=== PATIENT | male | born 1950 | race Caucasian/White ===

== ENCOUNTER 2019-07-19 09:12 | Outpatient (CLI) | payer MEDICARE ==
[2019-07-19 09:40] LABS: BASOPHILS # (AUTO) 0.1 10^3/uL (0.0-0.1); BASOPHILS % (AUTO) 1.6 %; EOSINOPHILS # (AUTO) 0.3 10^3/uL (0.0-0.7); EOSINOPHILS % (AUTO) 4.5 %; HGB - HEMOGLOBIN 14.2 g/dL (14.0-18.0); LYMPHOCYTES # (AUTO) 2.1 10^3/uL (1.5-3.5); LYMPHOCYTES % (AUTO) 37.4 %; MEAN CORPUSCULAR HEMOGLOBIN 32.2 pg (27.0-31.0); MEAN CORPUSCULAR VOLUME 94.8 fL (80.0-94.0); MEAN PLATELET VOLUME 11.5 fL (7.4-11.4); MONOCYTES # (AUTO) 0.5 10^3/uL (0.0-1.0); MONOCYTES % (AUTO) 9.3 %; NEUTROPHILS # (AUTO) 2.6 10^3/uL (1.5-6.6); NEUTROPHILS % (AUTO) 46.8 %; PLT - PLATELET COUNT 145 10^3/uL (130-450); RED BLOOD COUNT 4.41 10^6/uL (4.70-6.10); RED CELL DISTRIBUTION WIDTH 12.4 % (12.0-15.0); WHITE BLOOD COUNT 5.5 x10^3/uL (4.8-10.8)
[2019-07-19 10:00] LABS: ALBUMIN 4.5 g/dL (3.2-5.5); ALBUMIN/GLOBULIN RATIO 1.5 (1.0-2.2); ALKALINE PHOSPHATASE 38 IU/L (42-121); ALT ALANINE AMINOTRANSFERASE 23 IU/L (10-60); AST ASPARTATE AMINOTRANSFERASE 26 IU/L (10-42); BILIRUBIN,TOTAL 0.8 mg/dL (0.2-1.0); BUN - BLOOD UREA NITROGEN 20 mg/dL (6-20); CARBON DIOXIDE - CO2 29 mmol/L (21-32); CHLORIDE 101 mmol/L (101-111); CHOL/HDL RATIO 3.5 (<5.0); CHOLESTEROL 149 mg/dL; CREATININE 0.8 mg/dL (0.6-1.2); GFR - MDRD 96 (>89); GLUCOSE 136 mg/dL (70-100); HDL CHOLESTEROL 42 mg/dL; LDL CHOLESTEROL,CALCULATED 74 mg/dL; LDL/HDL RATIO 1.8 (<3.6); SODIUM 138 mmol/L (135-145); TOTAL PROTEIN 7.5 g/dL (6.7-8.2); VLDL CHOLESTEROL 33 mg/dL
[2019-07-22 16:10] LABS: HB2 TOTAL 14.8 g/dL; HEMOGLOBIN A1C 0.8 g/dL; HEMOGLOBIN A1C % 7.1 % (4.6-6.2)
== END 2019-07-19 09:13 | disposition home or self-care (01) ==
LOC: LAB 09:12
PROVIDERS: ATTEND Family Medicine
DX: Z12.5 Encounter for screening for malignant neoplasm of prostate (principal); E78.5 Hyperlipidemia, unspecified; M19.90 Unspecified osteoarthritis, unspecified site; E11.42 Type 2 diabetes mellitus with diabetic polyneuropathy
CPT/HCPCS: 36415; 80053; 80061; 83036; 84443; 85025; G0103; 83721; 84153

== ENCOUNTER 2019-09-27 11:55 | Outpatient (CLI) | payer MEDICARE ==
--- NOTE | 2019-09-27 15:10 | XRAY Report ---
Reason: SHOULDER PAIN Procedure Date: 09/27/2019 Accession Number: [id number] / [id number] Procedure: XR - Shoulder 3 View LT CPT Code: Final Report FULL RESULT: EXAM: LEFT SHOULDER RADIOGRAPHY EXAM DATE: 09/27/2019 12:25 PM. CLINICAL HISTORY: SHOULDER PAIN. COMPARISON: None. TECHNIQUE: 3 views. FINDINGS: Bones: Normal. No fracture or bone lesion. Joints: The glenohumeral and acromioclavicular joints are normal. Soft tissues: Small ossicles inferior to the distal clavicle. The visualized hemithorax is unremarkable. No soft tissue swelling. IMPRESSION: Negative left shoulder films without clear findings to explain pain RADIA
== END 2019-09-27 11:56 | disposition home or self-care (01) ==
LOC: DI 11:55
PROVIDERS: ATTEND Family Medicine
DX: M25.512 Pain in left shoulder (principal)

== ENCOUNTER 2019-12-27 08:00 | Outpatient (CLI) | payer MEDICARE ==
[2019-12-27 18:23] LABS: CALCIUM 9.1 mg/dL (8.5-10.3); CREATININE 0.8 mg/dL (0.6-1.2)
[2019-12-27 18:41] LABS: HB2 TOTAL 15.1 g/dL; HEMOGLOBIN A1C 0.98 g/dL; HEMOGLOBIN A1C % 8.1 % (4.6-6.2)
== END 2019-12-27 23:59 | disposition home or self-care (01) ==
LOC: LAB.WCP 08:00
PROVIDERS: ATTEND Family Medicine
DX: E11.42 Type 2 diabetes mellitus with diabetic polyneuropathy (principal)
CPT/HCPCS: 36415; 80048; 83036

== ENCOUNTER 2020-10-02 09:39 | Outpatient (CLI) | payer MEDICARE ==
[2020-10-02 10:22] LABS: BASOPHILS % (AUTO) 0.9 %; EOSINOPHILS # (AUTO) 0.2 10^3/uL (0.0-0.7); EOSINOPHILS % (AUTO) 3.5 %; HCT - HEMATOCRIT 42.6 % (42.0-52.0); HGB - HEMOGLOBIN 14.6 g/dL (14.0-18.0); LYMPHOCYTES # (AUTO) 1.6 10^3/uL (1.5-3.5); LYMPHOCYTES % (AUTO) 36.3 %; MEAN CORPUSCULAR HEMOGLOBIN 32.6 pg (27.0-31.0); MEAN CORPUSCULAR HGB CONC 34.3 g/dL (32.0-36.0); MEAN CORPUSCULAR VOLUME 95.1 fL (80.0-94.0); MEAN PLATELET VOLUME 11.1 fL (7.4-11.4); MONOCYTES # (AUTO) 0.4 10^3/uL (0.0-1.0); MONOCYTES % (AUTO) 8.6 %; NEUTROPHILS # (AUTO) 2.2 10^3/uL (1.5-6.6); NEUTROPHILS % (AUTO) 50.5 %; PLT - PLATELET COUNT 150 10^3/uL (130-450); RED BLOOD COUNT 4.48 10^6/uL (4.70-6.10); WHITE BLOOD COUNT 4.3 x10^3/uL (4.8-10.8)
[2020-10-02 10:46] LABS: ALBUMIN 4.7 g/dL (3.2-5.5); ALBUMIN/GLOBULIN RATIO 1.6 (1.0-2.2); ALKALINE PHOSPHATASE 43 IU/L (42-121); ALT ALANINE AMINOTRANSFERASE 21 IU/L (10-60); AST ASPARTATE AMINOTRANSFERASE 27 IU/L (10-42); BUN - BLOOD UREA NITROGEN 17 mg/dL (6-20); CALCIUM 9.1 mg/dL (8.5-10.3); CARBON DIOXIDE - CO2 26 mmol/L (21-32); CHLORIDE 99 mmol/L (101-111); CHOL/HDL RATIO 4.2 (<5.0); CHOLESTEROL 161 mg/dL; CREATININE 0.8 mg/dL (0.6-1.2); DIGOXIN 0.8 ng/mL; GFR - MDRD 96 (>89); GLUCOSE 166 mg/dL (70-100); HDL CHOLESTEROL 38 mg/dL; LDL CHOLESTEROL,CALCULATED 88 mg/dL; LDL/HDL RATIO 2.3 (<3.6); POTASSIUM 4.3 mmol/L (3.5-5.0); SODIUM 135 mmol/L (135-145); TOTAL PROTEIN 7.7 g/dL (6.7-8.2); TRIGLYCERIDES 174 mg/dL; VLDL CHOLESTEROL 35 mg/dL
[2020-10-02 10:57] LABS: THYROID STIMULATING HORMONE 1.91 uIU/mL (0.34-5.60)
[2020-10-02 10:58] LABS: CREATININE,URINE 194.1 mg/dL; MICROALBUMIN,URINE 6.8 mg/dL (0-300.0)
[2020-10-02 12:53] LABS: ESTIMATED AVERAGE GLUCOSE 157 mg/dL (70-100); HEMOGLOBIN A1c% 7.1 % (4.27-6.07)
== END 2020-10-02 09:40 | disposition home or self-care (01) ==
LOC: LAB 09:39
PROVIDERS: ATTEND Family Medicine
DX: G60.9 Hereditary and idiopathic neuropathy, unspecified (principal); G89.29 Other chronic pain; I48.91 Unspecified atrial fibrillation; E78.5 Hyperlipidemia, unspecified; E11.9 Type 2 diabetes mellitus without complications; G62.9 Polyneuropathy, unspecified; Z79.899 Other long term (current) drug therapy
CPT/HCPCS: 36415; 80053; 80061; 80162; 82043; 82570; 83036; 83721; 84443; 85025

== ENCOUNTER 2020-12-23 16:03 | Outpatient (CLI) | payer MEDICARE ==
--- NOTE | 2020-12-23 17:26 | XRAY Report ---
PROCEDURE: Finger(s) RT INDICATIONS: FINGER PAIN, RIGHT TECHNIQUE: AP hand, 2 views of the second finger(s) acquired. COMPARISON: None FINDINGS: Bones: No fractures or dislocations. No suspicious bony lesions. Age-appropriate generalized degen erative changes are seen. Soft tissues: Soft tissue swelling is seen of the second finger. IMPRESSION: Soft tissue swelling is seen of the second finger, without an underlying bony abnormality. Reviewed by: Lee Escalona MD on 12/23/2020 4:25 PM MAXIMILIAN Approved by: Lee Escalona MD on 12/23/2020 4:25 PM MAXIMILIAN Station ID: [id number]
== END 2020-12-23 23:59 | disposition home or self-care (01) ==
LOC: DI.N 16:03
PROVIDERS: ATTEND Family Medicine
DX: M79.9 Soft tissue disorder, unspecified (principal)

== ENCOUNTER 2021-04-02 08:30 | Outpatient (CLI) | payer MEDICARE ==
[2021-04-02 09:07] LABS: CREATININE,URINE 208.4 mg/dL; MICROALBUM/CREATININE RATIO,UR 20.6 ug/mg (<30.0); MICROALBUMIN,URINE 4.3 mg/dL (0-300.0)
[2021-04-02 09:10] LABS: CALCIUM 9.2 mg/dL (8.5-10.3); CREATININE 0.8 mg/dL (0.6-1.2)
[2021-04-02 09:11] LABS: POTASSIUM 4.7 mmol/L (3.5-5.0)
[2021-04-02 11:51] LABS: ESTIMATED AVERAGE GLUCOSE 148 mg/dL (70-100); HEMOGLOBIN A1c% 6.8 % (4.27-6.07)
== END 2021-04-02 08:31 | disposition home or self-care (01) ==
LOC: LAB 08:30
PROVIDERS: ATTEND Family Medicine
DX: I10 Essential (primary) hypertension (principal); G60.9 Hereditary and idiopathic neuropathy, unspecified; I48.91 Unspecified atrial fibrillation; E11.9 Type 2 diabetes mellitus without complications; G62.9 Polyneuropathy, unspecified
CPT/HCPCS: 36415; 80048; 82043; 82570; 83036

== ENCOUNTER 2021-05-24 10:25 | Day surgery (SDC) | payer MEDICARE ==
[2021-05-24] MEDS ORDERED: LACTATED RINGERS 1,000 ML IV ONE (10:51)
--- NOTE | 2021-05-24 11:13 | ANESTHESIA ---
Pre-Anesthesia VS, & Labs Height: 6 ft 2 in Weight (kg): 93.3 kg Body Mass Index: 26.4 BMI Classification: Overweight - NPO >8 hours - Lab Results Lab results reviewed: Yes <Medhat Sales - Last Filed: 05/24/21 10:57> - Diagnosis hx colon polyps (Medhat Sales) - Procedure colonoscopy (Medhat Sales) Vital Signs: Temp Pulse Resp BP Pulse Ox 36.3 C L 83 10 L 123/82 H 95 05/24/21 10:52 05/24/21 10:52 05/24/21 10:52 05/24/21 10:52 05/24/21 10:52 - Lab Results Current Lab Results: Laboratory Tests 05/24/21 11:07: POC Whole Bld Glucose 136 H Home Medications and Allergies <Medhat Sales - Last Filed: 05/24/21 10:57> <Barbara Anderson - Last Filed: 05/24/21 11:23> Home Medications: Ambulatory Orders Apixaban [Eliquis] 5 mg PO BID 05/23/21 Digoxin [Lanoxin] 0.25 mcg PO DAILY 05/23/21 Gabapentin [Neurontin] 600 mg PO TID 05/23/21 Pravastatin [Pravachol] 40 mg PO DAILY 05/23/21 Ramipril [Altace] 2.5 mg PO DAILY 05/23/21 dilTIAZem HCL [Diltiazem 24Hr ER (Xr)] 180 mg PO DAILY 05/23/21 metFORMIN [Glucophage] 1,000 mg PO DAILY 05/23/21 oxyCODONE/ACET 5/325 [Percocet 5 mg/325 mg] 1 - 2 tab PO Q4-6H 05/23/21 Apixaban [Eliquis] 5 mg PO BID 05/23/21 Digoxin [Lanoxin] 0.25 mcg PO DAILY 05/23/21 Gabapentin [Neurontin] 600 mg PO TID 05/23/21 Pravastatin [Pravachol] 40 mg PO DAILY 05/23/21 Ramipril [Altace] 2.5 mg PO DAILY 05/23/21 dilTIAZem HCL [Diltiazem 24Hr ER (Xr)] 180 mg PO DAILY 05/23/21 metFORMIN [Glucophage] 1,000 mg PO DAILY 05/23/21 oxyCODONE/ACET 5/325 [Percocet 5 mg/325 mg] 1 - 2 tab PO Q4-6H 05/23/21 Allergies/Adverse Reactions: Allergies Allergy/AdvReac Type Severity Reaction Status Date / Time No Known Drug Allergies Allergy Verified 05/23/21 11:27 Anes History & Medical History - Anesthetic History Anesthesia Complications: reports: No previous complications Family history of Anesthesia Complications: Denies Family history of Malignant Hyperthermia: Denies - Medical History Cardiovascular: reports: Atrial fibrillation Pulmonary: reports: None Gastrointestinal: reports: None Urinary: reports: None Musculoskeletal: reports: None Endocrine/Autoimmune: reports: Type 2 diabetes Skin: reports: None - Surgical History Urologic: reports: Prostatic surgery Orthopedic: reports: Spine surgery, Other <Medhat Sales P - Last Filed: 05/24/21 10:57> Exam General: Alert, Oriented x3, Cooperative <Medhat Sales P - Last Filed: 05/24/21 10:57> Dental: WNL Mouth Openin Fingerbreadth Neck Mobility: Normal Mallampati classification: II Thyromental Distance: 4-6 cm Respiratory: Lungs clear, Normal breath sounds, No respiratory distress Cardiovascular: Other (AF) Neurological: Normal speech Mental/Cognitive Status: Alert/Oriented X3, Normal for patient Cognitive Status: Within normal limits <Barbara Anderson E - Last Filed: 05/24/21 11:23> Plan Anesthesia Type: Total IV Consent for Procedure(s) Verified and Reviewed: Yes Code Status: Attempt Resuscitation ASA classification: 3-Severe systemic disease Is this case an emergency?: No <Medhat Sales P - Last Filed: 05/24/21 10:57>
[2021-05-24] MEDS ORDERED: MIDAZOLAM 2 MG/2 ML VIAL ONE (11:17)
[2021-05-24] MEDS ORDERED: PROPOFOL 200 MG/20 ML VIAL IVP ONE ×2 (11:18→11:20)
[2021-05-24] MEDS ORDERED: fentaNYL 100 MCG/2 ML VIAL ONE (11:18)
--- NOTE | 2021-05-24 11:24 | HISTORY & PHYSICAL EXAMINATION ---
Chief Complaint - Chief Complaint Chief Complaint: history colon polyps History of Present Illness - History Obtained From Records Reviewed: yes History obtained from: pt Exam Limitations: none - History of Present Illness HPI Comment/Other: Here for colon cancer surveillance History - Past Medical History Cardiovascular: reports: Atrial fibrillation Respiratory: reports: None Endocrine/Autoimmune: reports: Type 2 diabetes GI: reports: None : reports: None HEENT: reports: None Psych: reports: None Musculoskeletal: reports: None Derm: reports: None MRSA Hx?: No - Past Surgical History Ortho: reports: Spine surgery, Other Meds/Allgy - Home Medications Home Medications: Ambulatory Orders Medication Instructions Recorded Confirmed Apixaban [Eliquis] 5 mg PO BID 05/23/21 05/24/21 Digoxin [Lanoxin] 0.25 mcg PO DAILY 05/23/21 05/24/21 Gabapentin [Neurontin] 600 mg PO TID 05/23/21 05/24/21 Pravastatin [Pravachol] 40 mg PO DAILY 05/23/21 05/24/21 Ramipril [Altace] 2.5 mg PO DAILY 05/23/21 05/24/21 dilTIAZem HCL [Diltiazem 24Hr ER 180 mg PO DAILY 05/23/21 05/24/21 (Xr)] metFORMIN [Glucophage] 1,000 mg PO DAILY 05/23/21 05/24/21 oxyCODONE/ACET 5/325 [Percocet 5 1 - 2 tab PO Q4-6H 05/23/21 05/24/21 mg/325 mg] - Allergies Allergies/Adverse Reactions: Allergies Allergy/AdvReac Type Severity Reaction Status Date / Time No Known Drug Allergies Allergy Verified 05/23/21 11:27 Review of Systems - Other Findings Other Findings: 10 pt ros as above otherwise unremarkable Exam - Vital Signs Reviewed Vital Signs: Yes Vital Signs: Vital Signs x48h Temp Pulse Resp BP Pulse Ox 05/24/21 10:52 36.3 C L 83 10 L 123/82 H 95 - Physical Exam General Appearance: positive: No acute distress, Alert Eyes Bilateral: positive: PERRL, EOMI ENT: positive: No signs of dehydration Neck: positive: No JVD Respiratory: positive: No respiratory distress, Breath sounds nml Cardiovascular: positive: Irregularly irregular Abdomen: positive: Non-tender, No distention Neurologic/Psychiatric: positive: Oriented x3 Conclusion/Plan - Problem List (1) History of adenomatous polyp of colon Conclusion/Plan: plan surveillance colonoscopy. parq held and consent obtained - Lab Results Lab results reviewed: Yes
[2021-05-24] MEDS ORDERED: LACTATED RINGERS 500 ML IV ONE (12:05)
[2021-05-24 12:32] VITALS: BP 114/66
--- NOTE | 2021-05-24 14:06 | ANESTHESIA POST OP EVALUATION ---
Anesthesia Post Eval - Post Anesthesia Eval Vitals: Last Vital Signs Temp 36.4 C L 05/24/21 12:31 Pulse 74 05/24/21 12:31 Resp 16 05/24/21 12:31 BP 114/66 05/24/21 12:31 Pulse Ox 99 05/24/21 12:31 CV Function Including HR & BP: Stable Pain Control: Satisfactory Nausea & Vomiting: Negative Mental Status: Baseline Respiratory Status: Airway Patent Hydration Status: Satisfactory Anesthesia Complications: None
== END 2021-05-24 10:26 | disposition home or self-care (01) ==
LOC: SDS 10:25
PROVIDERS: ATTEND Surgery
PROC: 0DBL8ZZ Excision of Transverse Colon, Via Natural or Artificial Opening Endoscopic (ICD-10-PCS; principal; 2021-05-24 11:30)
DX: Z12.11 Encounter for screening for malignant neoplasm of colon (principal); D12.3 Benign neoplasm of transverse colon; K57.30 Diverticulosis of large intestine without perforation or abscess without bleeding; G89.29 Other chronic pain; I48.91 Unspecified atrial fibrillation
CPT/HCPCS: 45380; J7120

== ENCOUNTER 2021-09-20 08:44 | Outpatient (CLI) | payer MEDICARE ==
[2021-09-20 09:16] LABS: BASOPHILS # (AUTO) 0.1 10^3/uL (0.0-0.1); EOSINOPHILS # (AUTO) 0.2 10^3/uL (0.0-0.7); EOSINOPHILS % (AUTO) 3.4 %; HCT - HEMATOCRIT 44.4 % (42.0-52.0); HGB - HEMOGLOBIN 15.5 g/dL (14.0-18.0); LYMPHOCYTES # (AUTO) 1.6 10^3/uL (1.5-3.5); LYMPHOCYTES % (AUTO) 32.3 %; MEAN CORPUSCULAR HEMOGLOBIN 33.3 pg (27.0-31.0); MEAN CORPUSCULAR HGB CONC 34.9 g/dL (32.0-36.0); MEAN CORPUSCULAR VOLUME 95.3 fL (80.0-94.0); MEAN PLATELET VOLUME 11.5 fL (7.4-11.4); MONOCYTES # (AUTO) 0.5 10^3/uL (0.0-1.0); MONOCYTES % (AUTO) 9.5 %; NEUTROPHILS # (AUTO) 2.6 10^3/uL (1.5-6.6); NEUTROPHILS % (AUTO) 53.6 %; PLT - PLATELET COUNT 142 10^3/uL (130-450); RED BLOOD COUNT 4.66 10^6/uL (4.70-6.10); RED CELL DISTRIBUTION WIDTH 12.2 % (12.0-15.0); WHITE BLOOD COUNT 4.9 x10^3/uL (4.8-10.8)
[2021-09-20 09:33] LABS: ALBUMIN 4.5 g/dL (3.2-5.5); ALBUMIN/GLOBULIN RATIO 1.6 (1.0-2.2); ALKALINE PHOSPHATASE 42 IU/L (42-121); ALT ALANINE AMINOTRANSFERASE 18 IU/L (10-60); AST ASPARTATE AMINOTRANSFERASE 20 IU/L (10-42); BILIRUBIN,TOTAL 0.8 mg/dL (0.2-1.0); BUN - BLOOD UREA NITROGEN 16 mg/dL (6-20); CARBON DIOXIDE - CO2 29 mmol/L (21-32); CHLORIDE 100 mmol/L (101-111); CHOL/HDL RATIO 4.5 (<5.0); CHOLESTEROL 181 mg/dL; CREATININE 0.8 mg/dL (0.6-1.2); GFR - MDRD 96 (>89); GLUCOSE 177 mg/dL (70-100); HDL CHOLESTEROL 40 mg/dL; LDL CHOLESTEROL,CALCULATED 91 mg/dL; LDL/HDL RATIO 2.3 (<3.6); POTASSIUM 4.4 mmol/L (3.5-5.0); SODIUM 138 mmol/L (135-145); TOTAL PROTEIN 7.3 g/dL (6.7-8.2); TRIGLYCERIDES 250 mg/dL; VLDL CHOLESTEROL 50 mg/dL
[2021-09-20 09:44] LABS: THYROID STIMULATING HORMONE 3.26 uIU/mL (0.34-5.60)
[2021-09-20 09:47] LABS: CREATININE,URINE 216.9 mg/dL; MICROALBUM/CREATININE RATIO,UR 27.2 ug/mg (<30.0); MICROALBUMIN,URINE 5.9 mg/dL (0-300.0)
[2021-09-20 10:17] LABS: ESTIMATED AVERAGE GLUCOSE 166 mg/dL (70-100); HEMOGLOBIN A1c% 7.4 % (4.27-6.07)
== END 2021-09-20 08:45 | disposition home or self-care (01) ==
LOC: LAB 08:44
PROVIDERS: ATTEND Family Medicine
DX: I10 Essential (primary) hypertension (principal); G89.29 Other chronic pain; I48.91 Unspecified atrial fibrillation; E78.5 Hyperlipidemia, unspecified; E11.9 Type 2 diabetes mellitus without complications; G62.9 Polyneuropathy, unspecified; Z79.891 Long term (current) use of opiate analgesic
CPT/HCPCS: 36415; 80053; 80061; 82043; 82570; 83036; 83721; 84443; 85025

== ENCOUNTER 2022-06-25 09:46 | Outpatient (CLI) | payer MEDICARE ==
[2022-06-25 10:01] LABS: BASOPHILS # (AUTO) 0.1 10^3/uL (0.0-0.1); EOSINOPHILS # (AUTO) 0.2 10^3/uL (0.0-0.7); EOSINOPHILS % (AUTO) 3.5 %; HCT - HEMATOCRIT 41.7 % (42.0-52.0); HGB - HEMOGLOBIN 14.1 g/dL (14.0-18.0); LYMPHOCYTES # (AUTO) 1.9 10^3/uL (1.5-3.5); LYMPHOCYTES % (AUTO) 37.7 %; MEAN CORPUSCULAR HEMOGLOBIN 32.3 pg (27.0-31.0); MEAN CORPUSCULAR HGB CONC 33.8 g/dL (32.0-36.0); MEAN CORPUSCULAR VOLUME 95.6 fL (80.0-94.0); MEAN PLATELET VOLUME 11.5 fL (7.4-11.4); MONOCYTES # (AUTO) 0.4 10^3/uL (0.0-1.0); MONOCYTES % (AUTO) 8.2 %; NEUTROPHILS # (AUTO) 2.5 10^3/uL (1.5-6.6); NEUTROPHILS % (AUTO) 49.4 %; PLT - PLATELET COUNT 144 10^3/uL (130-450); RED BLOOD COUNT 4.36 10^6/uL (4.70-6.10); RED CELL DISTRIBUTION WIDTH 12.2 % (12.0-15.0); WHITE BLOOD COUNT 5.1 x10^3/uL (4.8-10.8)
[2022-06-25 10:21] LABS: CREATININE,URINE 167.5 mg/dL; MICROALBUM/CREATININE RATIO,UR 29.9 ug/mg (<30.0)
[2022-06-25 10:26] LABS: ALKALINE PHOSPHATASE 46 IU/L (42-121); ALT ALANINE AMINOTRANSFERASE 22 IU/L (10-60); AST ASPARTATE AMINOTRANSFERASE 22 IU/L (10-42); BILIRUBIN,TOTAL 0.6 mg/dL (0.2-1.0); BUN - BLOOD UREA NITROGEN 22 mg/dL (6-20); CALCIUM 8.8 mg/dL (8.5-10.3); CARBON DIOXIDE - CO2 29 mmol/L (21-32); CHLORIDE 98 mmol/L (101-111); CREATININE 0.8 mg/dL (0.6-1.2); GFR - MDRD 96 (>89); GLUCOSE 288 mg/dL (70-100); POTASSIUM 4.6 mmol/L (3.5-5.0); SODIUM 136 mmol/L (135-145)
[2022-06-25 10:27] LABS: ALBUMIN 4.2 g/dL (3.2-5.5); ALBUMIN/GLOBULIN RATIO 1.3 (1.0-2.2); CHOL/HDL RATIO 4.1 (<5.0); CHOLESTEROL 153 mg/dL; HDL CHOLESTEROL 37 mg/dL; LDL CHOLESTEROL,CALCULATED 65 mg/dL; LDL/HDL RATIO 1.8 (<3.6); TOTAL PROTEIN 7.4 g/dL (6.7-8.2); TRIGLYCERIDES 256 mg/dL; VLDL CHOLESTEROL 51 mg/dL
[2022-06-25 10:36] LABS: THYROID STIMULATING HORMONE 3.77 uIU/mL (0.34-5.60)
[2022-06-25 11:50] LABS: ESTIMATED AVERAGE GLUCOSE 194 mg/dL (70-100); HEMOGLOBIN A1c% 8.4 % (4.27-6.07)
== END 2022-06-25 09:47 | disposition home or self-care (01) ==
LOC: LAB 09:46
PROVIDERS: ATTEND Family Medicine
DX: I10 Essential (primary) hypertension (principal); E11.42 Type 2 diabetes mellitus with diabetic polyneuropathy; I48.91 Unspecified atrial fibrillation; E78.5 Hyperlipidemia, unspecified
CPT/HCPCS: 36415; 80053; 80061; 82043; 82570; 83036; 83721; 84443; 85025

== ENCOUNTER 2023-03-21 18:35 | Emergency (ER) | payer MEDICARE ==
[2023-03-21 18:47] VITALS: BP 150/90; O2SAT 97
--- NOTE | 2023-03-21 19:05 | XRAY Report ---
PROCEDURE: Ankle 3 View RT INDICATIONS: ankle inj TECHNIQUE: 3 views of the ankle were acquired. COMPARISON: None. FINDINGS: Bones: No fractures or dislocations. Ankle mortise is normally aligned. No suspicious bony lesions . Soft tissues: No tibiotalar joint effusion. Achilles tendon appears normal. IMPRESSION: No acute bony abnormality. If there remains a high clinical concern for fracture, consider cross-sect ional imaging now. If pain persists, consider repeat x-ray in 10-14 days or cross-sectional imaging. Reviewed by: Dayday Mccoy MD on 03/21/2023 7:03 PM PDT Approved by: Dayday Mccoy MD on 03/21/2023 7:03 PM PDT Station ID: [id number]
--- NOTE | 2023-03-21 19:51 | ED Physician Documentation ---
PD HPI LOWER EXT INJURY - Stated complaint Stated Complaint: RT ANKLE PX - Chief complaint Chief Complaint: Ext Problem - History obtained from History obtained from: Patient - History of Present Illness PD HPI LOW EXT INJURY LOCATION: Right (In 1988 he ruptured his Achilles tendon on the left and did require surgery. Today he was putting his boat on the trailer and twisted wrong and planted his foot and feels like he popped his right Achilles.) PD PAST MEDICAL HISTORY - Past Medical History Past Medical History: Yes Cardiovascular: Atrial fibrillation Respiratory: None Endocrine/Autoimmune: Type 2 diabetes GI: None : None HEENT: None Psych: None Musculoskeletal: None Derm: None - Past Surgical History Ortho: Spine surgery, Other - Present Medications Home Medications: Ambulatory Orders Medication Instructions Recorded Confirmed Apixaban [Eliquis] 5 mg PO BID 05/23/21 03/21/23 Digoxin [Lanoxin] 0.25 mcg PO DAILY 05/23/21 03/21/23 Gabapentin [Neurontin] 600 mg PO TID 05/23/21 03/21/23 Pravastatin [Pravachol] 40 mg PO DAILY 05/23/21 03/21/23 Ramipril [Altace] 2.5 mg PO DAILY 05/23/21 03/21/23 dilTIAZem HCL [Diltiazem 24Hr ER 180 mg PO DAILY 05/23/21 03/21/23 (Xr)] metFORMIN [Glucophage] 1,000 mg PO DAILY 05/23/21 03/21/23 oxyCODONE/ACET 5/325 [Percocet 5 1 - 2 tab PO Q4-6H 05/23/21 03/21/23 mg/325 mg] Dulaglutide [Trulicity] 1.5 mg SUBQ OAW 03/21/23 03/21/23 Glimepiride [Amaryl] 2 mg PO DAILY 03/21/23 03/21/23 Knee Scooter 1 unit TD ONCE #1 03/21/23 - Allergies Allergies/Adverse Reactions: Allergies Allergy/AdvReac Type Severity Reaction Status Date / Time No Known Drug Allergies Allergy Verified 03/21/23 18:44 - Social History Does the pt smoke?: No Smoking Status: Never smoker PD ED PE NORMAL - Vitals Vital signs reviewed: Yes - General General: Alert and oriented X 3, No acute distress - Extremities Extremities: Other (Equivocal Mandujano's test on the right but it does elicit pain. He is tender with possible defect in the Achilles. He does have some strength in plantarflexion in the right foot.) - Neuro Neuro: Alert and oriented X 3 Eye Opening: Spontaneous Motor: Obeys Commands Verbal: Oriented GCS Score: 15 Results - Vitals Vitals: Vital Signs - 24 hr 03/21/23 18:44 Temperature 36.5 C Heart Rate 90 Respiratory 16 Rate Blood Pressure 150/90 H O2 Saturation 97 Oxygen O2 Source Room air - Rads (name of study) Three-view x-ray of the right ankle is unremarkable Relevant Findings:: Final report received, EMP independent interpretation of test Procedures - Splint (location) - Minor Right foot Splint applied by: Physician Type of splint: Fiberglass, Short leg, Posterior (In some plantarflexion) Other: Patient tolerated well, No complications, Neurovascular intact, Crutches provided Departure - Departure Disposition: 01 Home, Self Care Clinical Impression: Achilles rupture, right Qualifiers: Encounter type: initial encounter Qualified Code(s): S86.011A - Strain of right Achilles tendon, initial encounter Condition: Good Record reviewed to determine appropriate education?: Yes Instructions: ED Tendon Rupture Achilles Follow-Up: Orthopedic Care [Provider Group] - Within 1 week Prescriptions: Knee Scooter 1 unit TD ONCE #1 Comments: You were seen tonight for likely at least partially ruptured right Achilles tendon. Follow-up with the orthopedic surgeon next week for reevaluation and operative planning if they feel appropriate. Keep the splint on and dry until then. You can take Tylenol and/or ibuprofen for pain. Do not walk or bear weight on the right leg. I am writing a prescription for a knee scooter and you can use that on flat ground which is faster and safer than crutches.
== END 2023-03-21 20:12 | disposition home or self-care (01) ==
LOC: ED 18:35
DX: S86.011A Strain of right Achilles tendon, initial encounter (principal); X50.1XXA Overexertion from prolonged static or awkward postures, initial encounter; Y93.89 Activity, other specified; I48.91 Unspecified atrial fibrillation; E11.9 Type 2 diabetes mellitus without complications; Z79.01 Long term (current) use of anticoagulants; Z79.899 Other long term (current) drug therapy; Z79.84 Long term (current) use of oral hypoglycemic drugs
CPT/HCPCS: 29515; 99283

== ENCOUNTER 2023-06-05 07:59 | Outpatient (CLI) | payer MEDICARE ==
[2023-06-05 08:32] LABS: BASOPHILS # (AUTO) 0.1 10^3/uL (0.0-0.1); BASOPHILS % (AUTO) 1.2 %; EOSINOPHILS # (AUTO) 0.3 10^3/uL (0.0-0.7); EOSINOPHILS % (AUTO) 5.9 %; HCT - HEMATOCRIT 41.7 % (42.0-52.0); LYMPHOCYTES # (AUTO) 1.9 10^3/uL (1.5-3.5); MEAN CORPUSCULAR HGB CONC 33.6 g/dL (32.0-36.0); MEAN CORPUSCULAR VOLUME 95.4 fL (80.0-94.0); MEAN PLATELET VOLUME 11.8 fL (7.4-11.4); MONOCYTES # (AUTO) 0.5 10^3/uL (0.0-1.0); NEUTROPHILS # (AUTO) 2.8 10^3/uL (1.5-6.6); NEUTROPHILS % (AUTO) 50.4 %; PLT - PLATELET COUNT 151 10^3/uL (130-450); RED BLOOD COUNT 4.37 10^6/uL (4.70-6.10); RED CELL DISTRIBUTION WIDTH 11.9 % (12.0-15.0); WHITE BLOOD COUNT 5.6 x10^3/uL (4.8-10.8)
[2023-06-05 08:48] LABS: MICROALBUM/CREATININE RATIO,UR 68.3 ug/mg (<30.0); MICROALBUMIN,URINE 9.9 mg/dL
[2023-06-05 08:49] LABS: ALBUMIN 4.3 g/dL (3.2-5.5); ALBUMIN/GLOBULIN RATIO 1.7 (1.0-2.2); ALKALINE PHOSPHATASE 49 IU/L (42-121); ALT ALANINE AMINOTRANSFERASE 14 IU/L (10-60); AST ASPARTATE AMINOTRANSFERASE 15 IU/L (10-42); BILIRUBIN,TOTAL 0.6 mg/dL (0.2-1.0); BUN - BLOOD UREA NITROGEN 11 mg/dL (6-20); CALCIUM 9.1 mg/dL (8.5-10.3); CARBON DIOXIDE - CO2 29 mmol/L (21-32); CHLORIDE 103 mmol/L (101-111); CHOL/HDL RATIO 3.5 (<5.0); CHOLESTEROL 122 mg/dL; CREATININE 0.7 mg/dL (0.6-1.3); GFR - MDRD 111 (>89); GLUCOSE 177 mg/dL (74-104); HDL CHOLESTEROL 35 mg/dL; LDL CHOLESTEROL,CALCULATED 50 mg/dL; LDL/HDL RATIO 1.4 (<3.6); POTASSIUM 4.7 mmol/L (3.5-4.5); SODIUM 137 mmol/L (135-145); TOTAL PROTEIN 6.9 g/dL (6.4-8.9); TRIGLYCERIDES 186 mg/dL (48-352); VLDL CHOLESTEROL 37 mg/dL
[2023-06-05 09:01] LABS: THYROID STIMULATING HORMONE 2.72 uIU/mL (0.34-5.60)
[2023-06-05 10:55] LABS: ESTIMATED AVERAGE GLUCOSE 171 mg/dL (70-100); HEMOGLOBIN A1c% 7.6 % (4.27-6.07)
== END 2023-06-05 08:00 | disposition home or self-care (01) ==
LOC: LAB 07:59
PROVIDERS: ATTEND Family Medicine
DX: E11.65 Type 2 diabetes mellitus with hyperglycemia (principal); R80.9 Proteinuria, unspecified; I48.91 Unspecified atrial fibrillation; E11.42 Type 2 diabetes mellitus with diabetic polyneuropathy
CPT/HCPCS: 36415; 80053; 80061; 82043; 82570; 83036; 83721; 84443; 85025

== ENCOUNTER 2023-09-19 09:28 | Outpatient (CLI) | payer MEDICARE ==
[2023-09-19 09:42] LABS: BASOPHILS # (AUTO) 0.1 10^3/uL (0.0-0.1); BASOPHILS % (AUTO) 0.9 %; EOSINOPHILS # (AUTO) 0.2 10^3/uL (0.0-0.7); EOSINOPHILS % (AUTO) 4.3 %; HCT - HEMATOCRIT 42.2 % (42.0-52.0); HGB - HEMOGLOBIN 14.4 g/dL (14.0-18.0); LYMPHOCYTES # (AUTO) 1.9 10^3/uL (1.5-3.5); LYMPHOCYTES % (AUTO) 34.8 %; MEAN CORPUSCULAR HEMOGLOBIN 32.5 pg (27.0-31.0); MEAN CORPUSCULAR HGB CONC 34.1 g/dL (32.0-36.0); MEAN CORPUSCULAR VOLUME 95.3 fL (80.0-94.0); MEAN PLATELET VOLUME 11.6 fL (7.4-11.4); MONOCYTES # (AUTO) 0.4 10^3/uL (0.0-1.0); MONOCYTES % (AUTO) 7.3 %; NEUTROPHILS # (AUTO) 2.8 10^3/uL (1.5-6.6); NEUTROPHILS % (AUTO) 52.3 %; PLT - PLATELET COUNT 149 10^3/uL (130-450); RED BLOOD COUNT 4.43 10^6/uL (4.70-6.10); RED CELL DISTRIBUTION WIDTH 12.2 % (12.0-15.0); WHITE BLOOD COUNT 5.3 x10^3/uL (4.8-10.8)
[2023-09-19 10:01] LABS: PROTEIN/CREATININE RATIO,URINE 0.2 (<=0.2)
[2023-09-19 10:02] LABS: ALBUMIN 4.4 g/dL (3.2-5.5); ALBUMIN/GLOBULIN RATIO 1.6 (1.0-2.2); ALKALINE PHOSPHATASE 51 IU/L (42-121); ALT ALANINE AMINOTRANSFERASE 17 IU/L (10-60); AST ASPARTATE AMINOTRANSFERASE 20 IU/L (10-42); BILIRUBIN,TOTAL 0.6 mg/dL (0.2-1.0); BUN - BLOOD UREA NITROGEN 13 mg/dL (6-20); CALCIUM 9.2 mg/dL (8.5-10.3); CARBON DIOXIDE - CO2 29 mmol/L (21-32); CHLORIDE 100 mmol/L (101-111); CHOL/HDL RATIO 4.1 (<5.0); CHOLESTEROL 136 mg/dL; CREATININE 0.8 mg/dL (0.6-1.3); GFR - MDRD 95 (>89); GLUCOSE 218 mg/dL (74-104); HDL CHOLESTEROL 33 mg/dL; LDL CHOLESTEROL,CALCULATED 43 mg/dL; LDL/HDL RATIO 1.3 (<3.6); POTASSIUM 4.3 mmol/L (3.5-4.5); SODIUM 136 mmol/L (135-145); TOTAL PROTEIN 7.1 g/dL (6.4-8.9); TRIGLYCERIDES 300 mg/dL (48-352); VLDL CHOLESTEROL 60 mg/dL
[2023-09-19 10:10] LABS: ESTIMATED AVERAGE GLUCOSE 203 mg/dL (70-100); HEMOGLOBIN A1c% 8.7 % (4.27-6.07)
[2023-09-19 10:13] LABS: THYROID STIMULATING HORMONE 3.34 uIU/mL (0.34-5.60)
== END 2023-09-19 09:29 | disposition home or self-care (01) ==
LOC: LAB 09:28
PROVIDERS: ATTEND Family Medicine
DX: Z00.00 Encounter for general adult medical examination without abnormal findings (principal); E11.65 Type 2 diabetes mellitus with hyperglycemia; E11.42 Type 2 diabetes mellitus with diabetic polyneuropathy; Z13.9 Encounter for screening, unspecified; E78.5 Hyperlipidemia, unspecified
CPT/HCPCS: 36415; 80053; 80061; 82570; 83036; 83721; 84156; 84443; 85025

== ENCOUNTER 2024-04-02 10:12 | Emergency (ER) | payer MEDICARE ==
--- NOTE | 2024-04-02 11:09 | ED Physician Documentation ---
History of Present Illness - Stated complaint Stated Complaint: CONGESTION/COUGH/WEAKNESS - Chief complaint Chief Complaint: Resp - Additonal information Additional information: Patient is a 73-year-old male presenting to the emergency department with persistent cough and fatigue. Patient was seen last Thursday at the walk-in clinic for similar symptoms and started on doxycycline. He notes since then his productive cough has improved but he continues to have generalized malaise, fatigue, chest tightness and pressure that this morning when he woke up. Patient notes he was feeling better after starting on the doxycycline but when he woke up and had worsening fatigue with chest pressure he became concerned and came to the emergency department. Patient has past medical history remarkable for hypertension, history of atrial fibrillation and is on digoxin and Eliquis for the past 20 years. He notes he has been compliant with these medications but symptoms have been persistent. He denies missing any antibiotic doses. He notes no leg swelling no worsening shortness of breath but occasional wheezing. Patient does not actively smoke. He has no significant past medical history of smoking. He denies any fevers or chills. He notes his granddaughter was having similar symptoms but she has improved already. He denies taking anything else for symptoms other than doxycycline. PD PAST MEDICAL HISTORY - Past Medical History Past Medical History: Yes Cardiovascular: Atrial fibrillation Respiratory: None Endocrine/Autoimmune: Type 2 diabetes GI: None : None HEENT: None Psych: None Musculoskeletal: None Derm: None - Past Surgical History Past Surgical History: Yes Ortho: Spine surgery, Other - Present Medications Home Medications: Ambulatory Orders Medication Instructions Recorded Confirmed Apixaban [Eliquis] 5 mg PO BID 05/23/21 03/21/23 Digoxin [Lanoxin] 0.25 mcg PO DAILY 05/23/21 03/21/23 Gabapentin [Neurontin] 600 mg PO TID 05/23/21 03/21/23 Pravastatin [Pravachol] 40 mg PO DAILY 05/23/21 03/21/23 Ramipril [Altace] 2.5 mg PO DAILY 05/23/21 03/21/23 dilTIAZem HCL [Diltiazem 24Hr ER 180 mg PO DAILY 05/23/21 03/21/23 (Xr)] metFORMIN [Glucophage] 1,000 mg PO DAILY 05/23/21 03/21/23 oxyCODONE/ACET 5/325 [Percocet 5 1 - 2 tab PO Q4-6H 05/23/21 03/21/23 mg/325 mg] Dulaglutide [Trulicity] 1.5 mg SUBQ OAW 03/21/23 03/21/23 Glimepiride [Amaryl] 2 mg PO DAILY 03/21/23 03/21/23 Knee Scooter 1 unit TD ONCE #1 03/21/23 - Allergies Allergies/Adverse Reactions: Allergies Allergy/AdvReac Type Severity Reaction Status Date / Time No Known Drug Allergies Allergy Verified 04/02/24 10:51 - Social History Does the pt smoke?: No Smoking Status: Never smoker Does the pt drink ETOH?: Yes ETOH Use: Beer Does the pt have substance abuse?: No - Immunizations Immunizations are current?: Yes PD ED PE NORMAL - Vitals Vital signs reviewed: Yes - General General: Alert and oriented X 3 - Neck Neck: Supple, no meningeal sign - Cardiac Cardiac: RRR, No murmur, No gallop, No rub - Respiratory Respiratory: No respiratory distress, Other (No significant respiratory distress on examination there does appear to be a mild expiratory wheeze in bilateral upper lung boateng on auscultation. No appreciable stridor no rhonchi rales or crackles on auscultation.) - Abdomen Abdomen: Normal bowel sounds - Extremities Extremities: No deformity, No edema, Other - Neuro Neuro: Alert and oriented X 3 Eye Opening: Spontaneous Motor: Obeys Commands Verbal: Oriented GCS Score: 15 Results - Vitals Vitals: Vital Signs - 24 hr 04/02/24 10:48 Temperature 35.9 C L Heart Rate 74 Respiratory 20 Rate Blood Pressure 119/91 H O2 Saturation 99 Oxygen O2 Source Room air - EKG (time done) 1131 EKG releavant findings:: EKG personally interpreted by author of this note. Relevant findings are: Rate: Rate (enter#), [place], Tachy, Other Rhythm: Atrial fibrillation [place]: Normal QRS: Normal Ischemia: Normal ST segments Compare to prior EKG: Unchanged from prior EKG - Rads (name of study) Chest X-ray Relevant Findings:: EMP independent interpretation of test PD Medical Decision Making - ED course Complexity details: reviewed old records ED course: Patient is a 73-year-old male presenting to the emergency department with persistent cough congestion fatigue chest pressure that worsened today. He notes he has been having cough congestion for 3 weeks now started on doxycycline about a week ago his cough and congestion seem to have improved but he continues to be weak and chest pressure worsened today. Patient denies any other medications. He is on digoxin and Eliquis for history of atrial fibrillation he denies any worsening shortness of breath no lower leg swelling. Vitals on arrival are reassuring he is afebrile nontachycardic and normotensive. Patient shows no signs of hypoxia saturating on room air to 100%. No appreciable lower leg swelling. Auscultation of lungs showed mild expiratory wheeze in upper lung boateng on examination. Normal cardiac sounds on auscultation no appreciable murmur patient nontachycardic irregular rhythm appreciated though. EKG obtained given chest pressure showing atrial fibrillation no ST abnormalities on examination. Patient has known history of atrial fibrillation no significant change from previous EKG Departure - Departure Forms: PCP List
--- NOTE | 2024-04-02 11:40 | XRAY Report ---
PROCEDURE: Chest 2V INDICATIONS: cough, congestion TECHNIQUE: 2 views of the chest were acquired. COMPARISON: None. FINDINGS: Surgical changes and devices: None. Lungs and pleura: No pleural effusions or pneumothorax. Lungs are clear. Mediastinum: Mediastinal contours appear normal. Heart size is normal. Bones and chest wall: No suspicious bony lesions. Overlying soft tissues appear unremarkable. IMPRESSION: No acute cardiopulmonary process. Reviewed by: Amy Gates MD on 04/02/2024 10:39 AM MAXIMILIAN Approved by: Amy Gates MD on 04/02/2024 10:39 AM MAXIMILIAN Station ID: [id number]
[2024-04-02 11:55] LABS: BASOPHILS % (AUTO) 0.6 %; EOSINOPHILS # (AUTO) 0.1 10^3/uL (0.0-0.7); EOSINOPHILS % (AUTO) 2.3 %; HCT - HEMATOCRIT 43.2 % (42.0-52.0); HGB - HEMOGLOBIN 14.3 g/dL (14.0-18.0); LYMPHOCYTES # (AUTO) 1.7 10^3/uL (1.5-3.5); LYMPHOCYTES % (AUTO) 27.4 %; MEAN CORPUSCULAR HEMOGLOBIN 30.9 pg (27.0-31.0); MEAN CORPUSCULAR HGB CONC 33.1 g/dL (32.0-36.0); MEAN CORPUSCULAR VOLUME 93.3 fL (80.0-94.0); MEAN PLATELET VOLUME 11.3 fL (7.4-11.4); MONOCYTES # (AUTO) 0.4 10^3/uL (0.0-1.0); MONOCYTES % (AUTO) 6.3 %; NEUTROPHILS # (AUTO) 3.9 10^3/uL (1.5-6.6); NEUTROPHILS % (AUTO) 62.4 %; PLT - PLATELET COUNT 224 10^3/uL (130-450); RED BLOOD COUNT 4.63 10^6/uL (4.70-6.10); RED CELL DISTRIBUTION WIDTH 12.2 % (12.0-15.0); WHITE BLOOD COUNT 6.2 x10^3/uL (4.8-10.8)
[2024-04-02] MEDS: SODIUM CHLORIDE 0.9% 1,000 ML IV STA (12:11)
[2024-04-02 12:12] LABS: TROPONIN I HIGH SENSITIVITY 5.9 ng/L (2.3-19.7)
[2024-04-02 12:13] LABS: ALBUMIN 4.2 g/dL (3.2-5.5); ALBUMIN/GLOBULIN RATIO 1.3 (1.0-2.2); BILIRUBIN,TOTAL 0.5 mg/dL (0.2-1.0); CALCIUM 9.5 mg/dL (8.5-10.3); CREATININE 0.9 mg/dL (0.6-1.3); POTASSIUM 4.3 mmol/L (3.5-4.5); TOTAL PROTEIN 7.5 g/dL (6.4-8.9)
[2024-04-02] MEDS: IPRATROPIUM/ALBUTEROL 3 ML NEB INH STA (12:22)
[2024-04-02 12:33] LABS: DIGOXIN 1.1 ng/mL
[2024-04-02 13:05] LABS: B. PARAPERTUSSIS- RESP PCR PAN NOT DETECTED; B. PERTUSSIS- RESP PCR PANEL NOT DETECTED; C. PNEUMONIAE- RESP PCR PANEL NOT DETECTED; CORONAVIRUS 229E-RESP PCR NOT DETECTED; CORONAVIRUS HKU1-RESP PCR NOT DETECTED; CORONAVIRUS NL63-RESP PCR NOT DETECTED; CORONAVIRUS OC43-RESP PCR NOT DETECTED; HUMAN METAPNEUMOVIRUS NOT DETECTED; INFLUENZA A- RESP PCR PANEL NOT DETECTED; INFLUENZA B - RESP PCR PANEL NOT DETECTED; M. PNEUMONIAE- RESP PCR PANEL NOT DETECTED; PARAINFLUENZA VIRUS 1 NOT DETECTED; PARAINFLUENZA VIRUS 2 NOT DETECTED; PARAINFLUENZA VIRUS 3 NOT DETECTED; PARAINFLUENZA VIRUS 4 NOT DETECTED; RHINOVIRUS/ENTEROVIRUS NOT DETECTED; RSV- RESP PCR PANEL NOT DETECTED; SARS-CoV-2 -RESP PCR PANEL NOT DETECTED
[2024-04-02 13:23] VITALS: BP 140/84; O2SAT 100
== END 2024-04-02 13:16 | disposition home or self-care (01) ==
LOC: ED 10:12
DX: J06.9 Acute upper respiratory infection, unspecified (principal); R73.9 Hyperglycemia, unspecified; I48.91 Unspecified atrial fibrillation; Z79.01 Long term (current) use of anticoagulants
CPT/HCPCS: 36415; 80053; 80162; 84484; 85025; 87633; 93005; 94640; 94664; 99284

== ENCOUNTER 2024-04-12 16:18 | Outpatient (CLI) | payer MEDICARE ==
--- NOTE | 2024-04-13 11:23 | MRI Report ---
Knee RT WO CLINICAL INFORMATION: 73 years of age, Male, INTERNAL DERANGEMENT R KNEE. COMPARISON: None Technique: Multisequence, multiplanar MRI of the right] knee was performed without intravenous contra st. FINDINGS: Menisci: In the medial meniscus, there is a horizontal longitudinal tear of the posterior horn. There is a small radial tear of the medial meniscus body. Mild extrusion of the medial meniscus body. In t he lateral meniscus, the posterior root is not well-visualized. There is a vertical tear of the perip heral aspect of the posterior horn. There is near maceration of the lateral meniscus body. Horizontal longitudinal tear of the anterior horn of the lateral meniscus. Cruciate ligaments: The ACL is intact. There is 1.3 cm intra-articular body lateral and posterior to the ACL with associated marrow edema, likely reactive. The PCL is intact. MCL/LCL: The MCL is unremarkable. The biceps femoris tendon is unremarkable. The fibular collateral ligament is unremarkable. The iliotibial band is intact. The popliteus muscle and tendon also appear intact. Extensor mechanism: The quadricep tendon is unremarkable. Mild tendinosis of the proximal and distal patellar tendon. Mild infrapatellar subcutaneous edema. Patellofemoral joint: Alignment within the patellofemoral joint is normal. The patellofemoral ligame nts are intact. Mild chondral irregularity of the patella. Cartilage and bone: Multifocal high-grade chondral irregularity in the weightbearing portion of the m edial femoral condyle. Mild chondral irregularity in the nonweightbearing portion of the medial femor al condyle. In the lateral compartment, there is small area of high-grade chondral loss in the weight bearing portion of the femoral condyle, in the nonweightbearing portion of the femoral condyle, and t he tibial plateau, with associated mild subchondral marrow edema. No acute fracture. Miscellaneous: Small knee effusion. No popliteal cyst. Normal muscle signal intensity and morphology. No vascular anomaly. IMPRESSION: 1.Tear of the medial and lateral meniscus. 2.1.3 cm intra-articular ossified body lateral and posterior to the ACL, with associated marrow edema , likely reactive. 3.Moderate, lateral compartment predominant chondrosis with mild subchondral marrow edema. Reviewed by: Ana Law MD on 04/13/2024 11:21 AM PDT Approved by: Ana Law MD on 04/13/2024 11:21 AM PDT Station ID: [id number]
== END 2024-04-12 16:19 | disposition home or self-care (01) ==
LOC: DI 16:18
PROVIDERS: ATTEND Orthopaedic Surgery
DX: S83.241A Other tear of medial meniscus, current injury, right knee, initial encounter (principal); S83.281A Other tear of lateral meniscus, current injury, right knee, initial encounter; M94.261 Chondromalacia, right knee; M23.41 Loose body in knee, right knee